=== PATIENT | female | born 1945 | race Caucasian/White ===

== ENCOUNTER 2019-04-13 11:53 | Inpatient (IN) | payer MEDICARE, BC ==
[~2019-04-13] VITALS: Ht 152.4 cm; Wt 78.0 kg
[~2019-04-13 11:53] MED LIST: ASPI-986 PO; CLOP75TA4 PO; FLUT1DIS3 IH; HYDR12.54 PO; NITR0.4T49 SL; ROSU20TA2 PO; TIOT18CA3 IH
[2019-04-13] MEDS ORDERED: NICARDIPINE 100MCG/ML 10ML VIAL (CATH LAB) IV ONE (12:15)
[2019-04-13] MEDS ORDERED: HEPARIN SODIUM 1,000 UNIT/1ML VIAL IV ONE (12:15)
[2019-04-13] MEDS ORDERED: NITROGLYCERIN 50MCG/ML 10ML VIAL (CATH LAB) IV ONE (12:15)
[2019-04-13] MEDS ORDERED: UMEC1DIS IH (13:17)
[2019-04-13] MEDS ORDERED: LIP40 PO (13:17)
[2019-04-13] MEDS ORDERED: FURO20TA4 PO (13:17)
[2019-04-13] MEDS ORDERED: FLUT9.9S NS (13:17)
[2019-04-13] MEDS ORDERED: LIDOCAINE HCL 1% 20ML VIAL (Pyxis) INJ ONE (13:37)
[2019-04-13] MEDS ORDERED: IODIXANOL 320MG/ML 100 ML BOTTLE IV ONE (13:37)
[2019-04-13] MEDS ORDERED: IOHEXOL-300 100 ML BOTTLE ONE (13:38)
[2019-04-13] MEDS ORDERED: MIDAZOLAM HCL 2 MG/2 ML VIAL ONE (14:14)
[2019-04-13] MEDS ORDERED: FENTANYL CITRATE/PF 50MCG/ML 2ML VIAL ONE (14:14)
[2019-04-13] MEDS ORDERED: IODIXANOL 320MG/ML 200ML BOTTLE ONE (15:00)
[2019-04-13] MEDS ORDERED: ATROPINE SULFATE 1MG/10ML SYR IV PRN (15:45)
[2019-04-13] MEDS ORDERED: ONDANSETRON HCL 4MG/2ML INJ IV PRN (15:45)
[2019-04-13] MEDS ORDERED: ACETAMINOPHEN 325MG TABLET PO PRN (15:45)
[2019-04-13 16:42] VITALS: BP 140/67
[2019-04-13 18:00] VITALS: BP 130/69
[2019-04-13 19:00] VITALS: BP 115/72
[2019-04-13 20:05] VITALS: BP 149/73
[2019-04-13] MEDS ORDERED: ATORVASTATIN CALCIUM 40MG TABLET PO SCH (21:00)
[2019-04-13 21:06] VITALS: BP 142/83
[2019-04-13 22:00] VITALS: BP 135/79
[2019-04-14] VITALS: BP 121/71
[2019-04-14 02:00] VITALS: BP 105/68
[2019-04-14 04:00] VITALS: BP 116/67
[2019-04-14 06:00] VITALS: BP 131/83
[2019-04-14 07:02] LABS: BASOPHILS % 0.6 % (0.0-2.0); EOSINOPHILS % 2.5 % (0.0-5.0); HEMATOCRIT. 40.1 % (36.0-48.0); HEMOGLOBIN. 13.7 g/dL (12.0-16.0); LYMPHOCYTES % 26.8 % (20.0-50.0); MEAN CORPUSCULAR VOLUME 96.6 fL (81.0-99.0); MEAN PLATELET VOLUME 8.7 fl (7.4-10.4); NEUTROPHILS % 62.1 % (40.0-76.0); PLATELET 205 x1000/uL (130-400); RED BLOOD CELL COUNT 4.15 mill/uL (4.2-5.4); RED CELL DISTRIBUTION WIDTH 14.2 % (11.6-14.6)
[2019-04-14 07:36] LABS: CHLORIDE 105 mEq/L (98-107)
[2019-04-14 08:00] VITALS: BP 132/73
[2019-04-14] MEDS ORDERED: FUROSEMIDE 20MG TABLET PO SCH (09:00)
[2019-04-14] MEDS: ASPIRIN 325MG TABLET PO SCH ×2 (09:00→10:13)
[2019-04-14 09:40] VITALS: BP 132/73
== END 2019-04-14 10:37 | disposition home or self-care (01) | DRG 287 ==
LOC: CCL 11:53 → 3WST 11:54
PROVIDERS: ADMIT Specialist; ATTEND Specialist
PROC: 4A023N7 Measurement of Cardiac Sampling and Pressure, Left Heart, Percutaneous Approach (ICD-10-PCS; principal; 2019-04-13)
PROC: B211YZZ Fluoroscopy of Multiple Coronary Arteries using Other Contrast (ICD-10-PCS; 2019-04-13)
PROC: B215YZZ Fluoroscopy of Left Heart using Other Contrast (ICD-10-PCS; 2019-04-13)
DX: I25.110 Atherosclerotic heart disease of native coronary artery with unstable angina pectoris (principal); E78.5 Hyperlipidemia, unspecified; E87.6 Hypokalemia; F17.210 Nicotine dependence, cigarettes, uncomplicated; I11.9 Hypertensive heart disease without heart failure; I49.3 Ventricular premature depolarization; J44.9 Chronic obstructive pulmonary disease, unspecified; Z79.52 Long term (current) use of systemic steroids; Z82.3 Family history of stroke; Z82.49 Family history of ischemic heart disease and other diseases of the circulatory system; Z88.4 Allergy status to anesthetic agent; Z88.0 Allergy status to penicillin; Z88.2 Allergy status to sulfonamides; Z88.8 Allergy status to other drugs, medicaments and biological substances; Z79.899 Other long term (current) drug therapy
CPT/HCPCS: 36415; 80048; 85025; 85347; 93458; C1725; C1769; C1887; C1893; J1644; J2250; J3010; J3490; Q9967